=== PATIENT | female | born 1970 | race Caucasian/White ===

== ENCOUNTER 2019-12-04 16:21 | Emergency (ER) | payer OTHER ==
[2019-12-04 16:47] VITALS: BP 136/83; PULSE 88; TEMP 97.7; BMI 28.0
[2019-12-04] MEDS ORDERED: LORATADINE 10 MG TABLET PO ONE (17:19)
--- NOTE | 2019-12-04 17:25 | PDOC ---
History of Present Illness - General Chief Complaint: Eye Problem Stated Complaint: EYE PROBLEM Time Seen by Provider: 12/04/19 17:13 History Source: Patient - History of Present Illness Timing/Duration: other Past History - Past Medical History Allergies/Adverse Reactions: Allergies Allergy/AdvReac Type Severity Reaction Status Date / Time No Known Allergies Allergy Verified 12/04/19 16:47 Home Medications: Ambulatory Orders Loratadine [Claritin -] 10 mg PO DAILY #12 tablet 12/04/19 COPD: No Other medical history: DENIES - Immunization History Immunization Up to Date: Yes - Psycho Social/Smoking Cessation Hx Smoking History: Never smoked Have you smoked in the past 12 months: No Information on smoking cessation initiated: No Hx Alcohol Use: No Drug/Substance Use Hx: No Review of Systems - Review of Systems Constitutional: No: Chills, Fever HEENTM: No: Eye Pain, Blurred Vision, Tearing, Ear Pain, Nose Congestion, Throat Pain Respiratory: No: Cough *Physical Exam - Vital Signs Last Vital Signs Temp Pulse Resp BP Pulse Ox 97.7 F 88 17 136/83 96 12/04/19 16:44 12/04/19 16:44 12/04/19 16:44 12/04/19 16:44 12/04/19 16:44 - Physical Exam General Appearance: Yes: Appropriately Dressed. No: Apparent Distress HEENT: positive: Normal Voice, Other (Minimal L periorbital edema, no erythema, warmth or ttp, conjunc clear w/ no chemosis) Neck: positive: Supple Respiratory/Chest: negative: Respiratory Distress Integumentary: positive: Dry, Warm Neurologic: positive: Fully Oriented, Alert, Normal Mood/Affect Medical Decision Making - Medical Decision Making 12/04/19 17:20 49-year-old female, no significant history, here with L bruce-orbital swelling and itching x several days. Denies any obvious inciting factors and no known drug food or environmental allergies. No nasal congestion, rhinorrhea, eye/ facial pain, PINTO, f/c. No history of similar episode See exam L bruce-orbital edema and itching c/w allergic reaction, less likely infection No obvious inciting factors -Dc w/ oral antihistamine and cool compresses -To return as needed Discharge - Discharge Information Problems reviewed: Yes Clinical Impression/Diagnosis: Periorbital edema of left eye Condition: Good Disposition: HOME - Additional Discharge Information Prescriptions: Loratadine [Claritin -] 10 mg PO DAILY #12 tablet - Follow up/Referral Referrals: Rebeca Woodard MD [Primary Care Provider] - - Patient Discharge Instructions Additional Instructions: Take Claritin as directed and apply cool compresses frequently throughout the day If symptoms persist and or worsen, return to the ER - Post Discharge Activity Work/Back to School Note: Back to Work
[2019-12-04] MEDS ORDERED: LORATADINE 10 MG TABLET ONE (17:27)
== END 2019-12-04 17:35 | disposition home or self-care (01) ==
LOC: JERFT 16:21
DX: H05.229 Edema of unspecified orbit (principal)
CPT/HCPCS: 99282-25